=== PATIENT | female | born 1990 | race Caucasian/White ===

== ENCOUNTER 2017-08-01 00:43 | Outpatient (CLI) | payer OTHER ==
[2017-08-01 01:05] VITALS: BP 126/70
[2017-08-01 01:47] LABS: BILIRUBIN,URINE NEGATIVE (NEGATIVE); GLUCOSE, URINE (UA) NEGATIVE (NEGATIVE); KETONES,URINE (UA) NEGATIVE (NEGATIVE); LEUKOCYTE ESTERASE, URINE SMALL (NEGATIVE); NITRITE,URINE NEGATIVE (NEGATIVE); OCCULT BLOOD,URINE LARGE (NEGATIVE); PROTEIN,URINE 100 mg/dL (NEGATIVE); UROBILINOGEN,URINE 0.2 (NORMAL) E.U./dL (NORMAL)
[2017-08-01 01:57] LABS: BACTERIA,URINE None Seen /HPF (None Seen); CLARITY,URINE CLOUDY (CLEAR); SQUAMOUS EPITHELIAL CELL,UR MANY Squamous (<= Few)
[2017-08-01] MEDS ORDERED: ACETAMINOPHEN 500 MG TABLET PO ONE (02:03)
[2017-08-01 02:43] LABS: BILIRUBIN,URINE NEGATIVE (NEGATIVE); GLUCOSE, URINE (UA) NEGATIVE (NEGATIVE); KETONES,URINE (UA) NEGATIVE (NEGATIVE); LEUKOCYTE ESTERASE, URINE SMALL (NEGATIVE); NITRITE,URINE NEGATIVE (NEGATIVE); OCCULT BLOOD,URINE LARGE (NEGATIVE); PROTEIN,URINE 100 mg/dL (NEGATIVE); UROBILINOGEN,URINE 0.2 (NORMAL) E.U./dL (NORMAL)
[2017-08-01 02:52] LABS: BACTERIA,URINE None Seen /HPF (None Seen); CLARITY,URINE SL. CLOUDY (CLEAR); RBC,URINE TNTC /HPF (0-5); SQUAMOUS EPITHELIAL CELL,UR RARE Squamous (<= Few)
[2017-08-01] MEDS ORDERED: AMOX/CLAV 500 MG/125 MG TABLET PO SCH (04:00)
--- NOTE | 2017-08-01 04:39 | PREOP HISTORY & PHYSICAL ---
DATE OF SERVICE: 08/01/2017 Physician: Frank Tompkins MD IDENTIFICATION: Patient is a 27-year-old. She is a G2, P1 female whose EDC is 10/17/2017. This makes her 29 weeks EGA. CHIEF COMPLAINT: Bladder, as well as low back pain. HISTORY OF PRESENT ILLNESS: Patient states that yesterday she developed some urgency and frequency of the bladder. She denies any chills, fevers at this particular time. She denies any history of any kidney or bladder infections in the past. She states she works in [employer] and sits most of the day. She relates her low back pain is in the lower back. She has previously had one child, is noted to be normal. PAST MEDICAL HISTORY: Patient denies any hypertensive, diabetic or cardiac disease. PAST SURGICAL HISTORY: None. ALLERGIES: NONE KNOWN. CURRENT MEDICATIONS: vitamins. HABITS: Patient denies use of alcohol, tobacco or street or addictive drugs. SOCIAL HISTORY: Patient is . She is active duty [place], works at [employer]. PHYSICAL EXAMINATION GENERAL: Patient is a well-developed, well-nourished white female. She is in no acute distress at this time. VITAL SIGNS: Temperatures is 37.2. Blood pressure 126/70, heart rate is 90, respirations are 18, O2 saturation is 98. Her pain scale, she is roughly 2/10. HEENT: Pupils are equal, round. Extraocular muscles are intact. Thyroid is not palpably enlarged. HEART: Regular rate and rhythm without murmurs. LUNGS: Lung mayen are clear without rales or wheezes. BACK: There is no CVA tenderness in the back at this time, despite several testings. There is some tenderness of the low back, paraspinal muscles, as well as lateral. There are no palpable masses. There is no tenderness of the SI joints. ABDOMEN: Upon palpating the abdomen, she is gravid, roughly 30 cm in height. The uterus itself is nontender whatsoever. The bladder is tender, duplicating some of the pain she is complaining of. NST was performed and this was noted to be negative for any contractions and accelerations are appropriate for gestational age. LABORATORY DATA: Urinalysis was performed, at which time she was noted to have 100 of protein in the urine. She had large occult blood. Her leukocyte esterase was small; however, RBCs were TNTC and WBCs were 11-25. There were rare squamous epitheliums of note on the cath specimen. IMPRESSION: Patient is a 27-year-old, G2, P1 female, who is 29 weeks estimated gestational age. Her lab and physical examination are compatible with those with cystitis. She does not exhibit any signs of kidney stones or pyelonephritis. PLAN: We will place patient on Augmentin 500 mg/125 b.i.d. First dose will be started here before she leaves the hospital. Because she works for [employer], she is instructed she will need to stop by [facility] before she is allowed to return to her job. She is instructed to follow up with her next appointment at the [facility] the following week. Should things become progressively worse, she should return and be reevaluated. TD: 08/01/2017 04:38
== END 2017-08-01 04:30 | disposition home or self-care (01) ==
LOC: WFO 00:43 → FBP 00:46 → WFO 04:30
PROVIDERS: ATTEND Obstetrics & Gynecology
DX: O23.13 Infections of bladder in pregnancy, third trimester (principal); Z3A.29 29 weeks gestation of pregnancy
CPT/HCPCS: 51701; 81001; 99213; A9270; 87086

== ENCOUNTER 2019-05-08 01:19 | Emergency (ER) | payer OTHER ==
--- NOTE | 2019-05-08 01:21 | ED Physician Documentation ---
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 at approximately 1 in the morning with sore throat and subjective fevers and tender cervical anterior lymphadenopathy without headache or neck pain or rash or cough.) Review of Systems Constitutional: reports: Reviewed and negative Eyes: reports: Reviewed and negative Ears: reports: Reviewed and negative Nose: reports: Reviewed and negative Throat: reports: Sore throat Cardiac: reports: Reviewed and negative Respiratory: reports: Reviewed and negative GI: reports: Reviewed and negative : reports: Reviewed and negative Skin: reports: Reviewed and negative Musculoskeletal: reports: Reviewed and negative Neurologic: reports: Reviewed and negative Psychiatric: reports: Reviewed and negative Endocrine: reports: Reviewed and negative Immunocompromised: reports: Reviewed and negative PD PAST MEDICAL HISTORY - Allergies Allergies/Adverse Reactions: Allergies Allergy/AdvReac Type Severity Reaction Status Date / Time No Known Drug Allergies Allergy Verified 08/01/17 02:07 PD ED PE NORMAL - Vitals Vital signs reviewed: Yes - General General: Alert and oriented X 3, No acute distress - HEENT HEENT: PERRL, Other (Oropharynx has bilateral exudates the uvula is midline t here is bilateral tender anterior cervical lymphadenopathy there is no posterior cervical lymphadenopathy TMs are clear bilaterally) - Neck Neck: Supple, no meningeal sign - Cardiac Cardiac: RRR, No murmur - Respiratory Respiratory: Clear bilaterally - Abdomen Abdomen: Normal bowel sounds, Soft, Non tender, Non distended, No organomegaly - Derm Derm: Warm and dry - Extremities Extremities: No deformity - Neuro Neuro: Alert and oriented X 3 - Psych Psych: Normal mood, Normal affect Results - Vitals Vitals: Vital Signs - 24 hr 05/08/19 01:24 Temperature 37.6 C H Heart Rate 109 H Respiratory 16 Rate Blood Pressure 134/83 H O2 Saturation 100 Oxygen O2 Source Room air - Labs Labs: Laboratory Tests 05/08/19 01:28 Group A Strep Rapid POSITIVE H PD MEDICAL DECISION MAKING - ED course Complexity details: other (CENTOR SCORE 4 WILL TREAT EMPIRICALLY WITH ABX) Departure - Departure Disposition: 01 Home, Self Care Clinical Impression: Pharyngitis Qualifiers: Pharyngitis/tonsillitis etiology: other specified organisms Qualified Code(s): J02.8 - Acute pharyngitis due to other specified organisms Condition: Good Instructions: ED Strep Pharyngitis Conf Follow-Up: [facility] [Other] - Tomorrow
[2019-05-08 01:25] VITALS: BP 134/83
[2019-05-08 01:37] LABS: RAPID STREP SCREEN POSITIVE (Negative)
[2019-05-08] MEDS ORDERED: DEXAMETHASONE 10 MG/ML VIAL IM STA (01:44)
[2019-05-08] MEDS ORDERED: PENICILLIN G BENZATHINE 600,000 UNIT/ML SYRINGE IM STA (01:44)
[2019-05-08] MEDS ORDERED: IBUPROFEN 800 MG TABLET PO STA (01:46)
== END 2019-05-08 02:24 | disposition home or self-care (01) ==
LOC: ED 01:19
DX: J02.0 Streptococcal pharyngitis (principal)
CPT/HCPCS: 87430; 96372; 99283; A9270

== ENCOUNTER 2021-08-12 08:59 | Emergency (ER) | payer OTHER ==
--- NOTE | 2021-08-12 10:36 | ED Physician Documentation ---
PD HPI URI - Stated complaint Stated Complaint: CONGESTED, RUNNY NOSE - Chief complaint Chief Complaint: Resp - History obtained from History obtained from: Patient - History of Present Illness Timing - onset: How many days ago (few) Timing duration: Days (few) Timing details: Gradual onset, Still present Associated symptoms: Sinus pain (has had nasal congestion and mild cough for couple of weeks, and now few days of right facial/sinus pressure, green drainage, and sore throat. Concerned about sinus infection.). No: Fever Contributing factors: No: Sick contact, COPD / asthma Recently seen: Not recently seen Review of Systems Constitutional: denies: Fever Nose: reports: Rhinorrhea / runny nose, Congestion, Sinus pressure / pain Throat: reports: Sore throat Cardiac: denies: Chest pain / pressure Respiratory: reports: Cough GI: denies: Nausea, Vomiting Skin: denies: Rash Neurologic: denies: Altered mental status, Headache PD PAST MEDICAL HISTORY - Past Medical History Past Medical History: No - Present Medications Home Medications: Ambulatory Orders Medication Instructions Recorded Confirmed Amoxicillin 500 mg PO TID #21 cap 08/12/21 Benzonatate [Tessalon] 100 mg PO TID PRN #20 cap 08/12/21 Cetirizine [ZyrTEC] 10 mg PO DAILY #15 tablet 08/12/21 dexAMETHasone [Decadron] 4 mg PO DAILY #5 tablet 08/12/21 - Allergies Allergies/Adverse Reactions: Allergies Allergy/AdvReac Type Severity Reaction Status Date / Time No Known Drug Allergies Allergy Verified 08/12/21 09:15 PD ED PE NORMAL - Vitals Vital signs reviewed: Yes - General General: Alert and oriented X 3, Well developed/nourished - HEENT HEENT: Pharynx benign. No: Ears normal (some fluid behind right TM but not red/inflammed. ) - Neck Neck: Supple, no meningeal sign, No adenopathy - Cardiac Cardiac: RRR, No murmur - Respiratory Respiratory: Clear bilaterally - Derm Derm: Normal color, Warm and dry - Neuro Neuro: Alert and oriented X 3, No motor deficit, Normal speech Results - Vitals Vitals: Oxygen O2 Source Room air PD MEDICAL DECISION MAKING - ED course Complexity details: considered differential, d/w patient Departure - Departure Disposition: 01 Home, Self Care Clinical Impression: URI (upper respiratory infection) Acute sinusitis Qualifiers: Sinusitis location: maxillary Condition: Stable Record reviewed to determine appropriate education?: Yes Instructions: ED Sinusitis No Abx Prescriptions: Amoxicillin 500 mg PO TID #21 cap dexAMETHasone [Decadron] 4 mg PO DAILY #5 tablet Benzonatate [Tessalon] 100 mg PO TID PRN #20 cap PRN Reason: Cough Cetirizine [ZyrTEC] 10 mg PO DAILY #15 tablet Comments: The underlying process could have been a viral illness or possibly allergies. However it does sound like you have acute sinusitis now as well. We can treat this with amoxicillin antibiotic as well as cetirizine antihistamine and dexamethasone anti-inflammatory. Also add benzonatate if needed for cough. Tylenol or ibuprofen if needed for fevers or pains. Recheck if not improving well over the next several days to week. I transmitted your prescriptions to [facility] in [place]. Discharge Date/Time: 08/12/21 11:17
[2021-08-12] MEDS ORDERED: CHERRY SYRUP 10 ML UDC PO ONE (10:58)
[2021-08-12] MEDS ORDERED: AMOXICILLIN 250 MG CAPSULE PO STA (10:58)
[2021-08-12] MEDS ORDERED: CETIRIZINE 10 MG TABLET PO STA (10:58)
[2021-08-12] MEDS ORDERED: DEXAMETHASONE 10 MG/ML VIAL PO STA (10:58)
[2021-08-12 11:18] VITALS: BP 120/80
== END 2021-08-12 11:17 | disposition home or self-care (01) ==
LOC: ED 08:59
DX: J01.90 Acute sinusitis, unspecified (principal)
CPT/HCPCS: 99283; 99284; A9270